=== PATIENT | female | born 1985 | race Caucasian/White ===

== ENCOUNTER 2016-10-15 07:26 | Emergency (ER) | payer MEDICARE | END 2016-10-15 10:42 | disposition home or self-care (01) | LOC: ER 07:26 | DX: N20.1 Calculus of ureter (principal); J45.909 Unspecified asthma, uncomplicated; F17.210 Nicotine dependence, cigarettes, uncomplicated; Z87.440 Personal history of urinary (tract) infections; Z87.442 Personal history of urinary calculi; Z88.2 Allergy status to sulfonamides | CPT/HCPCS: 36415; 96361; 96374; 96375; 96376; J1200 ==